=== PATIENT | female | born 1955 | race Caucasian/White ===

== ENCOUNTER 2019-04-24 15:57 | Emergency (ER) | payer MEDICAID, OTHER ==
[~2019-04-24] VITALS: Ht 154.9 cm; Wt 85.5 kg
[~2019-04-24 15:57] MED LIST: IBUP800T48 PO
[2019-04-24 16:02] VITALS: Ht 154.9 cm; Wt 85.5 kg
[2019-04-24] MEDS ORDERED: ACETAMINOPHEN 325 MG TAB PO ONE (17:30)
[2019-04-24 19:11] VITALS: BP 111/60; PULSE 60; RESP 17
== END 2019-04-24 19:11 | disposition home or self-care (01) ==
LOC: FTE 15:57
DX: G44.209 Tension-type headache, unspecified, not intractable (principal)
CPT/HCPCS: 70450; Z7502; Z7610